=== PATIENT | male | born 1960 | race Caucasian/White ===

== ENCOUNTER 2019-05-23 09:41 | Day surgery (SDC) | payer BC ==
[2019-05-23] VITALS (13 sets, daily range): BP systolic 65–10121; BP diastolic 8–99; PULSE 49–83; TEMP 97.7–98.1
[~2019-05-23] VITALS: Ht 180.3 cm; Wt 74.0 kg
[2019-05-23] MEDS ORDERED: MULTI VITAMINS1 TAB PO (10:12)
[2019-05-23] MEDS ORDERED: CALCIUM CARBON650 M2 PO (10:13)
[2019-05-23] MEDS ORDERED: PHARMASSURE L-500 MG PO (10:13)
--- NOTE | 2019-05-23 10:34 | NUR ---
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 CHAIR RECLINED AND FEET ELEVATED. PATIENT EYES CLOSED AND DOES NOT REPLY WHEN NAME IS CALLED. STAFF MEMBER REQUEST OTHER RN'S TO COME. OTHER RN PRESENT IN ROOM AND MONITORS APPLIED TO PATIENT. SEE FLOW SHEET. BP-76/48, HR-49, SAO2 97%. O2 PER NASAL CANNULA APPLIED AT 2 LITERS. PATIENT SLOWLY STARTS TO RESPOND TO COMMANDS.
--- NOTE | 2019-05-23 10:40 | NUR ---
PATIENT RESPONDING AND ANSWERING QUESTIONS. BLOOD PRESSURE SLOWLY ELEVATING. PATIENT IS DIAPHORETIC. PATIENT DENIES DISCOMFORT AND STATES NAUSEA IMPROVING. STAFF MEMBERS STILL PRESENT IN ROOM.
--- NOTE | 2019-05-23 11:00 | NUR ---
PATIENT STATES HE IS FEELING BETTER AND ALSO NORMAL. [address] NEGRON PROVIDED INFORMATION. IV FLUIDS CONTINUE INFUSING FREE FLOW. ROYCE NARANJO CONTINUES AT BEDSIDE. WILL CONTINUE TO MONITOR PATIENT.
--- NOTE | 2019-05-23 11:47 | NUR ---
PATIENT SLOW TO RESPOND TO STAFF PRESENT. STAFF CONTINUE TO SPEAK WITH PATIENT. BLOOD SUGAR CHECKED. [address] NEGRON NOTIFIED OF PATIENT STATUS. IV FLUIDS OPEN TO FREE FLOW.
--- NOTE | 2019-05-23 11:56 | NUR ---
VSS. PATIENT ALERT AND TALKING WITH STAFF. ZOFRAN 4 MG WAS GIVEN PER IV. CONTINUES AT BEDSIDE. ROYCE NARANJO WITH PATIENT.
--- NOTE | 2019-05-23 12:45 | NUR ---
PATIENT TRANSPORTED PER CART TO BAY 6 ACCOMPANIED BY ENDO STAFF. PATIENT AMBULATES WITH 1 ASSIST WITH STEADY GAIT FROM CART TO CHAIR. MONITORS APPLIED. VSS. PATIENT DENIES NAUSEA AND DISCOMFORT.
--- NOTE | 2019-05-23 13:00 | NUR ---
VSS. PATIENT GIVEN 7UP AND MUFFIN. PATIENT ALERT AND TALKING WITH AT BEDSIDE. DENIES NAUSA AND DISCOMFORT.
--- NOTE | 2019-05-23 13:15 | NUR ---
DR NEGRON IN AND SPEAKING WITH PATIENT AND . VSS. PATIENT EATS ALL OF MUFFIN AND DRINKS ALL OF 7UP. DENIES PROBLEMS WITH FOOD AND DRINK.
--- NOTE | 2019-05-23 14:32 | NUR ---
VSS. PATIENT ALERT AND TALKING WITH STAFF. DISCHARGE INSTRUCTIONS GIVEN VERBAL AND DISCHARGE PACKET GIVEN TO PATIENT . QUESTIONS ANSWERED AND PATIENT VERBALIZED UNDERSTANDING. IV DC'D WITH TIP INTACT AND PRESSURE APPLIED.
--- NOTE | 2019-05-23 14:34 | NUR ---
PATIENT GOES TO BATHROOM. AMBULATES WITH STEADY GAIT. CHANGES BACK INTO STREET [facility]. DISCHARGED PER WHEELCHAIR TO [facility].
== END 2019-05-23 14:34 | disposition home or self-care (01) ==
LOC: SDCO 09:41
DX: K21.9 Gastro-esophageal reflux disease without esophagitis (principal); K29.30 Chronic superficial gastritis without bleeding; K63.9 Disease of intestine, unspecified; R19.7 Diarrhea, unspecified; K64.0 First degree hemorrhoids; K62.89 Other specified diseases of anus and rectum; Z88.1 Allergy status to other antibiotic agents; J30.2 Other seasonal allergic rhinitis; Z85.828 Personal history of other malignant neoplasm of skin
CPT/HCPCS: J2250; J2405; J3010; J7030